=== PATIENT | male | born 1970 | race Caucasian/White ===

== ENCOUNTER 2024-06-03 11:08 | Emergency (ER) | payer OTHER, SELFPAY ==
[2024-06-03 11:12] VITALS: BP 136/91; PULSE 74; RESP 18; TEMP 36.3; O2SAT 97; BMI 39.2
--- NOTE | 2024-06-03 11:23 | ED.WOUNDLAC ---
HPI - Wound/Laceration General Time Seen by Provider: 11:23 Date Seen: 06/03/24 Chief Complaint: Skin/Abscess/Foreign Body Stated Complaint: RT ankle laceration, heavy bleeding Time Seen by Provider: 06/03/24 11:16 Source: patient and RN notes reviewed Mode of arrival: ambulatory Limitations: no limitations History of Present Illness HPI narrative: The this 54-year-old male is coming into the ER with injury to his right lower leg. He was drilling a hole and the drill bit got stuck. When he was pulling back, the drill slipped and went across his anterior right lower love. He states it bled quite a bit initially, bleeding is controlled, has a handkerchief wrapped around the leg, no active bleeding at this time. He did drive himself here. Nothing else was injured, able to walk on it. He did start applying pressure immediately in did note that hemostasis was achieved prior to arrival. Denies any numbness tingling. Nothing else was injured. Nursing staff did look up his tetanus and it was 05/25/2020 for last dose. He is on no blood thinners. Patient tetanus UTD: Yes Context: accidental Related Data Home Medications ?Medication ?Instructions ?Recorded ?Confirmed No Known Home Medications 06/03/24 06/03/24 Allergies Allergy/AdvReac Type Severity Reaction Status Date / Time penicillin G Allergy Severe Hives Verified 06/03/24 11:16 Review of Systems Narrative: As per HPI. [facility] PFS Social History Smoking Status: Never smoker Do you use any of these nicotine containing products: None Second hand tobacco smoke exposure: No How often do you have a drink containing alcohol: 2-3 times a week How often do you have six or more drinks on one occasion: Less than monthly AUDIT-C Alcohol total score: 4 Non-prescribed substance use: denies use service: No Exam Const: Vital Signs, click to edit/add: Vital Signs - 24 hr 06/03/24 11:12 Temperature 97.3 F L Pulse Rate [Right Pulse Oximeter] 74 Respiratory Rate 18 Blood Pressure [Ri ght Upper Arm] 136/91 H Pulse Oximetry 97 Oxygen Delivery Me thod Room Air This 54-year-old male is alert, interactive, no apparent distress. He has a handkerchief wrapped around his right lower extremity distally. This was removed. He has an obliquely situated laceration that it is otherwise linear, the distal edge has a little irregular border to it, no active bleeding at this time. It goes into the subcutaneous tissue but does not appear to be deeper. It is not over the ankle, is over the anterior distal tibia area. Wound was anesthetized with 5 mL of 1% lidocaine with epinephrine. Patient tolerated this well. Will have nursing staff irrigate and then close wound with sutures. Documenting provider has reviewed patient's vital signs: yes Course Vital Signs Vital signs: Initial Vital Signs Temperature 97.3 F L 06/03/24 11:12 Temperature Source Temporal Artery Scan 06/03/24 11:12 Pulse Rate 74 06/03/24 11:12 Pulse Rhythm Regular 06/03/24 11:12 Pulse Strength 3+ Normal 06/03/24 11:12 Respiratory Rate 18 06/03/24 11:12 Blood Pressure 136/91 H 06/03/24 11:12 Blood Pressure Mean 106 H 06/03/24 11:12 Blood Pressure Position Sitting 06/03/24 11:12 Pulse Oximetry 97 06/03/24 11:12 Oxygen Delivery Method Room Air 06/03/24 11:12 Vital Signs Temperature 97.3 F L 06/03/24 11:12 Pulse Rate 74 06/03/24 11:12 Respiratory Rate 18 06/03/24 11:12 Blood Pressure 136/91 H 06/03/24 11:12 Pulse Oximetry 97 06/03/24 11:12 Oxygen Delivery Method Room Air 06/03/24 11:12 Temperature 97.3 F L 06/03/24 11:12 Pulse Rate 74 06/03/24 11:12 Respiratory Rate 18 06/03/24 11:12 Blood Pressure 136/91 H 06/03/24 11:12 Pulse Oximetry 97 06/03/24 11:12 Oxygen Delivery Method Room Air 06/03/24 11:12 Discharge Plan Discharge Clinical Impression: Laceration of lower leg, right Qualifiers: Encounter type: initial encounter Qualified Code(s): S81.811A - Laceration without foreign body, right lower leg, initial encounter Patient Disposition: Home, Self-Care Condition: Stable Instructions: Care For Your Stitches (ED), Laceration (ED) Additional Instructions: May shower but should otherwise keep this wound clean and dry. Cover at work to keep clean. Use bacitracin and bandages as needed. Recommend recheck of the wound in about 10-14 days to assess for suture removal, schedule clinic visit to have this done. If there is concern of infection, please seek re-evaluation. This may manifest is increasing wound pain, increasing redness, purulent discharge or associated fever. Activity Level: Activity as Tolerated Prescriptions: No Action No Known Home Medications Follow Up/Referrals: Provider,Not a Local [Primary Care Provider] - Stand Alone Forms: [facility] Info Instructions Procedures Laceration Laceration 1: Pre procedure diagnosis: Right anterior distal leg laceration Post procedure diagnosis: The same Site marking: not applicable Verification/time out: correct patient, correct site and correct procedure Name of person performing procedure: Peggy Gonzalez Site: lower extremity Side (If applicable): right Size (cm): 5 Description: linear Depth: simple, single layer Local Anesthetic: lidocaine 1% and with epi Amount of anesthesia used (mL): 5 Pre-repair: wound explored, irrigated extensively (By nursing staff) and deep structures intact Skin layer closed with: other (Ethilon) Size (cm): 3-0 Number of sutures: 9 Technique: simple, interrupted Wound cleansing: sterile water Estimated blood loss (if any): less than 5mls Conclusion: patient tolerated procedure
--- OUTSIDE RECORDS SUMMARY | 2024-06-03 11:51 | XMS_ITS | Encounter Summary ---
Author Organization [facility] Address [address] [place] [address]. [place] [address] Care Team Providers Care Radio Commentator Name Role Phone No Ref-Primary, Physician [facility] Pro vider Salvador Mosley Primary Care Provider Encounter Details Date Type Department Care Team (Late st Contact Info) Description 04/29/[address] [place] [address] Michael Purcell MD XXX RESIGNED XXX [address] [facility] [place] [facility] [address] [place] [address] Social History Tobacco Use Types Packs/Day Years Used Date Smoking Tobacco: Never Alcohol Use Standard Drinks/Week Comments Yes 0 (1 standard drink = 0.6 oz pur e alcohol) 10-15 beer a week Sex and Gender Information Value Date Recorded Sex Assigned at Not on file Gender Identity Not on file Sexual Orientation Not on file documented as of this encounter Progress Notes * 05/05/2002 11:59 PM CDTAddended by: STEPHANE MORRIS on: 05/05/2002,11:15 AM Modules accepted: Progress Notes 0 0:00 Emergency Department Encounter-CARINE HUSSEIN) [Entered: 00:00 Transc ription (HIM)] : 68 CHIEF COMPLAINT: Forehead illness. HISTORY OF PRESENT ILLNESS: This 32-year-old male who was hitting a hammer, struck something, the hammer rebounded back, striking him in the forehead injuring him. No loss of consciousness, did not see stars, did not hear bells. Den ies injury to anything else. He has had no cognitive difficulties since this occurred. Denies any n eurological symptoms of any sort. PAST MEDICAL HISTORY: He states he has been healthy. MEDS: He i s on no meds. ALLERGIES: Penicillin, gets hives. REVIEW OF SYSTEMS: See HPI. All other systems n egative. IMMUNIZATIONS: He is up to date on tetanus, last one was two years ago. OBJECTIVE: [place] rature 98.7, heart rate 84, respiratory rate 16, blood pressure 106/58, room air sat. 96%. Generally , he is alert, oriented times three, PERRL, EOMI. TMs - clear. PHARYNX - clear. NECK - supple, act augustus full range of motion. HEAD - shows a forehead laceration, upright Y-shaped to the left of midlin e just above the eyebrow, extending from the eyebrow in its midsection superiorly, 2 cms, each branch of the Y being 0.5 cm. It is gaping, there is no bony step-off, crepitus, deformity present there. NEURO - mental status above. Cranial nerves III-XII grossly intact, no focal motor, sensory deficit s present. ER COURSE: The area was anesthetized with bupivacaine 0.5% with adrenaline with excellen t anesthesia. Scrubbed with Betadine, irrigated with normal saline, and then closed with Ethilon 6-0 interrupteds in the usual fashion under sterile conditions with good closure and hemostasis. Bacitra kirstin applied. IMPRESSION: 1. Closed head trauma, intact neurological exam. 2. Forehead laceration. PLAN: Bacitracin now and q.d. Wound care instructions. Suture removal in four to five days PMD, with Dr. Purcell. Keep clean and dry during that time. Follow up for signs or symptoms of infection. We discussed using SPF-40 q.d. over the next year when he is out in the sun to prevent burning and t hereby minimizing scar formation. [id number] CARINE REYES MD 14 :54 MT: Document: [id number] [place], [place] Name: SHANDRA MARTINEZ EMERGENCY ROOM ENCOUNTER Page 2 of 2 LCN: DAPHNE DSC: 04/29/2002 [place], [place] Name: MR#: : Admit Date: EDDIE MARTINEZ -00 1970 04/29/20 02 Doctor: CARINE REYES MD EMERGENCY ROOM ENCOUNTER Page 1 of 2 Electronically filed by Eve Morris 05/05/2002 11:15 AM documented in this encounter Plan of Treatment Not on file documented as of this encounter Visit Diagnoses Not on filedocumented in this encounter Care Teams Radio Commentator Relationship Specialty Start Date End Date No Ref-Primary, Physician PCP - General 04/30/15 [facility]27[facility] [id number] [place] [address] PCP - General 02/28/19 03/04/19 Salvador Mosley [address] [place] [address] PCP - General Family Practice 03/05/19 documented as of this encounter
--- OUTSIDE RECORDS SUMMARY | 2024-06-03 11:51 | XMS_ITS | Encounter Summary ---
Author Organization [facility] Address [address] [place] [address] Care Team Providers Care Offshore Diver Name Role Phone Salvador Mosley MD Primary Care Provider [phone] Encounter Details Date Type Department Care Team ([facility] Contact Info) Description 01/22/2024 E-Visit [facility] [address] [place] [address] Mychart, [place] [address] Social History Tobacco Use Types Packs/Day Years Used Date Smoking Tobacco: Never Passive Smoke Exposure: Never Smokeless Tobacco: Current Chew Last attempted to quit: 03/14/2014 Alcohol Use Standard Drinks/Week Comments Yes 3 (1 standard drink = 0.6 oz pur e alcohol) a week PHQ-2 Answer Date Recorded PHQ-2 Score 0 10/28/2019 Financial Resource Strain Answer Date R ecorded Is it hard for you to pay fo r the very basics like food, housing, medical care or heating? No 08/16/2023 Food Insecurity Answer Date Recorded Does your food run out before you have the money to buy more? No 08/16/2023 Transportation Needs Answer Date Record ed Does a lack of transportatio n keep you from your medical appointments or from getting your medications? No 023 Sex and Gender Information Value Date Recorded Sex Assigned at Not on file Gender Identity Not on file Sexual Orientation Not on file documented as of this encounter Plan of Treatment Upcoming Encounters Date Type Department Care Team ([facility] Contact Info) Description 06/11/2024 8:00 AM CDT Hospital Encounter [facility] [address] [place] [address] Eric Ryder MD [address] [place], [place] [id number] documented as of this encounter Visit Diagnoses Not on filedocumented in this encounter Care Teams Offshore Diver Relationship Specialty [place] [address] [place] [address] PCP - General 08/19/15 documented as of this encounter
--- OUTSIDE RECORDS SUMMARY | 2024-06-03 11:51 | XMS_ITS | Clinical Summary ---
Author Organization [facility] Address [address] [place] [address] Care Team Providers Care Copra Processor Name Role Phone Salvador Mosley MD Primary Care Provider [phone] Source Comments You are receiving this document as you are listed as the primary care provider,follow-up provider, or the patient has been referred to you for consultation.This is in compliance with the Medicare and[facility] Hospital[facility] EHR Incentive Program,which states Providers who transition their patient to another setting of careor provider of care or refers their patient to another provider of care shouldprovide summary care record for each transition of care or referral. [facility] Allergies Active Allergy Reactions Criticality Noted Date Comments Penicillins Hives 01/15/2015 Medications Medication Sig Dispensed Refills Start Date End Date Status omeprazole (PRILOSEC) 20 MG capsuleIndications: Chest discomfort,Gastroes ophageal reflux disease, esophagitis presence not specified Take 1 Capsule by mouth daily. Take 1 hour before a meal. 30 Capsule 3 10/28/2019 Active polyethylene glycol-electrolyte (GO-LYTELY) 236 g oral solution Take as directed in patient instructions: drink 2000 mL at 6PM the evening before your procedure and 2000 mL 4 hours before leaving home for your procedure. 4000 mL 02/03/2024 Active Additional Information Patient not taking.Reported on 03/20/2024 bisacodyl (DULCOLAX) 5 MG enteric coated tablet Take as directed in patient instructions: 4 tablets by mouth once at 5 PM the evening before your procedure. 4 Tablet 02/03/2024 Active Additional Information Patient not taking.Reported on 03/20/2024 ondansetron (ZOFRAN) 4 MG tablet Take 1 Tablet (4 mg) by mouth every 8 hours as needed for Nausea (during bowel prep). 3 Tablet 02/03/2024 Active Additional Information Patient not taking.Reported on 03/20/2024 ALBUterol sulfate HFA 108 (90 Base) MCG/ACT inhaler Inhale 1-2 Puffs every 4 hours as needed for Wheezing. 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 Encounters Date Type Department Care Team Description 03/20/2024 8:20 AM CDT Office Visit [facility] [address] [place] [address] Stefani Adame PA-C Cough, unspecified type; Acute bronchitis, unspecified organism from Last 3 Months Immunizations Name Administration Dates Next Due Influenza IIV4 (Quadrivalent) 0.5mL (20657) 10/11 TDAP (BOOSTRIX) 08/25/2015 Td 12/01/1999 Td (7+ yrs) 12/01/1999 Tdap 05/25/2020 Family History Medical History Relation Name Comments Cancer Father colon, prostate Heart Disease Father Hypertension Father Relation Name Status Comments Father Alive Mother Alive Maternal Aunt Alive Maternal Grandfather Maternal Grandmother Maternal Uncle Alive Paternal Aunt Alive Paternal Grandfather Paternal Grandmother Alive Paternal Uncle Alive Sister Alive Social History Tobacco Use Types Packs/Day Years Used Date Smoking Tobacco: Never Passive Smoke Exposure: Never Smokeless Tobacco: Former Chew Quit: 03/14/2014 Tobacco Cessation:Counseling Given: Not Answered Alcohol Use Standard Drinks/Week Comments Yes 3 [...] on file Sexual Orientation Not on file Last Filed Vital Signs Vital Sign [place] Time Taken Comments Blood Pressure 136/66 03/20/2024 8:18 AM CDT Pulse 88 03/20/2024 8:18 AM CDT Temperature 36.4 ??C (97.5 ??F) 03/20/2024 8:18 AM CD T Respiratory Rate 16 03/20/2024 8:18 AM CDT Oxygen Saturation 97% 03/20/2024 8:18 AM CDT Inhaled Oxygen Concentration - - Weight 138.3 kg (305 lb) 08/16/2023 4:15 PM CDT Height 188 cm (6' 2) 08/16/2023 4:15 PM CDT Body Mass Index 39.16 08/16/2023 4:15 PM CDT Plan of Treatment Upcoming Encounters Date Type Department Care Team (Late st Contact Info) Description 06/11/2024 8:00 AM CDT Hospital Encounter [facility] [address] [place], [place] [id number] Eric Ryder MD [address] [place] [id number] Health Maintenance Due Date Last Done Comments Hep C Screening (Preventive Services) 1970 HIV Screening (Preventive Services) 1985 HepB (1) 01/29/1988 Adult Preventive Visit 01/20/2019 01/20/2018 Zoster/Shingles (1 of 2) 2019 Colonoscopy 12/14/2020 12/14/2015 COVID-19 Vaccine ( season) 2023 Influenza (#1) 2024 10/28/2019 PSA Screening Discussion 08/26/2024 08/26/2023, 02/10 Diabetes Screening- (based on age and BMI) 09/15/2026 09/15/2023, 08/26/2023, 03/04/2019, Additional history exists Cholesterol 08/26/2028 08/26/2023, 02/10, 01/20/2018, Additional history exists DTaP/Tdap/Td (3 - Tdap) 05/25/2030 05/25/20 20, 08/25/2015, 12/01/1999, Additional history exists HepA Aged Out No longer eligi ble based on patient's age to complete this topic Hib Aged Out No longer eligi ble based on patient's age to complete this topic IPV (Polio) Aged Out No longer eligi ble based on patient's age to complete this topic MCV4 Aged Out No longer eligi ble based on patient's age to complete this topic Pneumococcal Aged Out No longer eligi ble based on patient's age to complete this topic Procedures Procedure Name Priority Date/Time Associated Diagnosis Comments LIPID PANEL & DIRECT LDL (IF NEEDED) Routine 08/26/2023 7:41 AM CDT Lipid screening HGB A1C Routine 08/26/2023 7:40 AM CDT Diabetes mellitus screening PROSTATIC SPECIFIC ANTIGEN(SCREEN) Routine 08/26/2023 7:40 AM CDT Screening for prostate cancer ENDOSCOPY, COLON, SCREENING/DIAGNOSTI C Routine 12/14/2015 7:42 AM BROADCAST CHIEF ENGINEER Family history of colon cancer requiring screening colonoscopy from Last 3 Months or Most Recently Relevant to Health Maintenance Results * Lipid Panel & Direct LDL (if Needed) (08/26/2023 7:41 AM CDT) Cholesterol 164 0 - 199 mg/dL 08/26/2023 12:40 PM CDT [facility] Triglyceride 106 <=149 mg/dL 08/26/2023 12:40 PM CDT [facility] HDL Cholesterol 41 >=40 mg/dL 12:40 PM CDT [facility] LDL, Calculated 102 <130 mg/dL 12:40 PM CDT [facility] Non HDL Chol, Calculated 123 <=159 mg/dL 08/26/2023 12:40 PM CDT [facility] Cholesterol/HDL Ratio 4.0 08/26/2023 12:40 PM CDT [facility] Hours Fasting 12.0 8 - 12 Hours 08/26/2023 12:40 PM CDT [facility] Blood Venipuncture / Unknown 08/26/2023 7:41 AM CDT 08/26/2023 7:41 AM CDT Salvador Mosley MD LAB_1 Performing Organization Address [facility] [address] [facility] Co de Phone Number [facility] [place], [place] [phone] [place] [address] LAB [address] [place] [address], [facility] [phone] * Prostatic Specific Antigen (Screen) (08/26/2023 7:40 AM CDT) Prostatic Specific Antigen 0.9 0.0 - 4.0 ng/mL 08/26/2023 1:01 PM CDT [facility] Blood Venipuncture / Unknown 08/26/2023 7:40 AM CDT 08/26/2023 7:40 AM CDT Narrative [facility] - 08/26/2023 1:01 PM CDT The [employer] PSA Chemiluminescent immunoassay is used. Results obtained with different test methods or kits cannot be used interchangeably. Salvador Mosley MD LAB_1 Performing Organization Address [facility] [address]/ZIP Co de Phone Number [facility] [address] [place], [place] [phone] [place] [address] * (ABNORMAL) Hgb A1C (08/26/2023 7:40 AM CDT) Hemoglobin A1C 6.2(H) <=5.6 % 08/26/2023 2:10 PM CDT [facility] Estimated Average Glucose (Calc) 131 < 117 mg/dL 08/26/2023 2:10 PM CDT [facility] Comment:Estimated average gl ucose (eAG) converts A1c into glucose units (mg/dL) and estimates average glucose over the past approximately 3 months. The eAG reference interval (<117 mg/dL) corresponds to an A1c of <5.7%. Blood Venipuncture / Unknown 08/26/2023 7:40 AM CDT 08/26/2023 7:40 AM CDT Narrative [facility] - 08/26/2023 2:10 PM CDT For patients not previously diagnosed with diabetes: 5.7-6.4%: Increased risk for diabetes 6.5% and greater: Diagnostic for diabetes For patients diagnosed with diabetes: <8.0%: Goal of therapy for ages 18-75 Clinicians may recommend a higher or lower goal for specific individuals. Salvador Mosley MD LAB_1 Performing Organization Address City/State/[facility] Co de Phone Number [facility] [address] [phone] * Endoscopy, colon, diagnostic (12/14/2015 7:42 AM BROADCAST CHIEF ENGINEER) 12/14/2015 7:42 AM BROADCAST CHIEF ENGINEER Narrative [facility] - 12/14/2015 7:42 AM BROADCAST CHIEF ENGINEER Patient Name: Goldy Mcadams Procedure Date: 12/14/2015 7:42 AM Date of : 1970 Admit Type: Outpatient Age: 45 Note Status: Finalized Attending MD: Nestor Donohue MD Procedure: ? Colonoscopy Indications: ? Screening in patient at increased ? risk: Colorectal cancer in father ? before age 60 Providers: ? Nestor Donohue MD, Stefani [place] RN Referring MD: ?Salvador Mosley MD Medicines: ? Midazolam 3 mg IV, Fentanyl 100 ? micrograms IV Complications: ? No immediate complications. Procedure: ? After I obtained informed consent, ? the scope was passed under direct ? vision. Throughout the procedure, the ? patient's blood pressure, pulse, and ? oxygen saturations were monitored ? continuously. The [id number] was ? introduced through the anus and ? advanced to the cecum, identified by ? appendiceal orifice and ileocecal ? valve. The colonoscopy was performed ? without difficulty. The patient ? tolerated the procedure well. The ? quality of the bowel preparation was ? good. Findings: ? The perianal and digital rectal examinations were ? normal. ? A 4 mm polyp was found in the transverse colon. The ? polyp was sessile. The polyp was removed with a cold ? biopsy forceps. Resection and retrieval were complete. Impression: ?- One 4 mm polyp in the transverse ? colon. Resected and retrieved. Recommendation: ?- Await pathology results. ? - Repeat colonoscopy in 5 years for ? surveillance. Procedure Code(s): ?? --- Professional --- ? 05621, Colonoscopy, flexible; with ? biopsy, single or multiple Diagnosis Code(s): ?? --- Professional --- ? Z80.0, Family history of malignant ? neoplasm of digestive organs ? D12.3, Benign neoplasm of transverse ? colon CPT copyright 2014 [employer]. All rights reserved. The codes documented in this report are preliminary and upon stock checkerer review may be revised to meet current compliance requirements. Nestor Donohue MD 12/14/2015 8:25 AM This document has been electronically signed. Number of Addenda: 0 Note Initiated On: 12/14/2015 7:42 AM ? Endoscopy Report Salvador Mosley MD PN GI PROCEDURE [facility] Performing Organization Address City/State/[facility] Co de Phone Number PN [facility] from Last 3 Months or Most Recently Relevant to Health Maintenance Care Teams Copra Processor Relationship Specialty [place] [address] [place] [address] PCP - General 08/19/15
--- OUTSIDE RECORDS SUMMARY | 2024-06-03 11:51 | XMS_ITS | Clinical Summary ---
Author Organization [facility] Address [address] [place] [id number] Care Team Providers Care Cyber Security Administrator Name Role Phone Salvador Mosley Primary Care Provider [phone] Allergies Active Allergy Reactions Criticality Noted Date Comments Penicillins 07/08/2002 hives Medications No known medications Active Problems Problem Noted Date Diagnosed Date Family history of malignant neoplasm of gastrointestinal tract 07/08/2002 Overview: Colon Cancer (father) age 52 Immunizations Name Administration Dates Next Due TD,PF 7+ (Tenivac) 12/01/1999 Family History Medical History Relation Comments Cancer Father colon (52) and l ymphoma Hypertension Father Heart Disease Paternal Grandfather heart attack at 78 2-3 bypass surgery Relation Status Comments Father Paternal Grandfather Social History Tobacco Use Types Packs/Day Years [...] Sign Reading Time Taken Comments Blood Pressure 103/61 03/05/2019 4:07 PM CDT Pulse 86 03/05/2019 4:07 PM CDT Temperature 36.7 ??C (98.1 ??F) 03/05/2019 11:39 AM C DT Respiratory Rate 16 03/05/2019 11:39 AM CDT Oxygen Saturation 97% 03/05/2019 4:07 PM CDT Inhaled Oxygen Concentration - - Weight 136.1 kg (300 lb) 02/28/2019 7:05 PM CDT Height 188 cm (6' 2) 02/28/2019 7:05 PM CDT Body Mass Index 38.52 02/28/2019 7:05 PM CDT Plan of Treatment Not on file Care Teams Cyber Security Administrator Relationship Specialty Start Date End Date Salvador Mosley PCP - General Family Practice 03/05/19
--- OUTSIDE RECORDS SUMMARY | 2024-06-03 11:51 | XMS_ITS | Referral Summary ---
Author Organization [facility] Address [address] [place] [id number] Care Team Providers Care Clinical Documentation Spec Name Role Phone Salvador Mosley Anthony Primary Care Provider Allergies Active Allergy Reactions Criticality Noted Date Comments Penicillins 07/08/2002 hives Medications No known medications Active Problems Problem Noted Date Diagnosed Date Family history of malignant neoplasm of gastrointestinal tract 07/08/2002 Overview: Colon Cancer (father) age 52 Immunizations Name Administration Dates Next Due TD,PF 7+ (Tenivac) 12/01/1999 Social History Tobacco Use Types Packs/Day Years [...] of Treatment Not on file Care Teams Clinical Documentation Spec Relationship Specialty Start Date End Date Salvador Mosley PCP - General Family Practice 03/05/19
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
[2024-06-03] MEDS: BACITRACIN 0.9 GM PACKET 1 EACH TOPICAL (12:05)
== END 2024-06-03 12:08 | disposition home or self-care (01) ==
PROVIDERS: Emergency Provider Family Medicine
DX: S81.811A Laceration without foreign body, right lower leg, initial encounter (principal)
CPT/HCPCS: 12002; 99283; A9270